=== PATIENT | male | born 1990 | race Caucasian/White ===

== ENCOUNTER 2017-11-08 14:34 | Emergency (ER) | payer OTHER ==
[~2017-11-08] VITALS: Ht 165.1 cm; Wt 101.2 kg
--- OUTSIDE RECORDS SUMMARY | ~2017-11-08 | XMS | Clinical Summary ---
Demographics + + + | Address | [address] | | | [place] [address] | + + + | Home Phone | | + + + | Preferred Language | Unknown | + + + | Marital Status | Single | + + + | Nondenominational Affiliation | Unknown | + + + | Race | White | + + + | Ethnic Group | Not or | + + + Author + + + | Organization | Unknown | + + + | Address | Unknown | + + + | Phone | Unavailable | + + + Care Team Providers + +------+ + | Care Fish Peddler Name | Role | Phone | + +------+ + PP | Unavailable | + +------+ + Source Comments TAYLOR is fully live on both [facility] and [facility] InPatient.[facility] Allergies Not on File Current Medications Not on file Active Problems Not on file Social History + +-------+ +--------+------+ | Tobacco Use | Types | Packs/Day | Years | Date | | | | | Used | | + +-------+ +--------+------+ | Never Assessed | | | | | + +-------+ +--------+------+ + + + | Sex Assigned at | Date Recorded | | | | + + + | Not on file | | + + + Plan of Treatment + + + + + | Health Maintenance | Due Date | Last Done | Comments | + + + + + | INFLUENZA VACCINE | | | | | (FLU SHOT) | 8 | | | + + + + + Results Not on filefrom Last 3 Months"
--- OUTSIDE RECORDS SUMMARY | ~2017-11-08 | XMS | Clinical Summary ---
Demographics + + + | Address | [address] | | | [place] [address] | + + + | Home Phone | | + + + | Preferred Language | Unknown | + + + | Marital Status | | + + + | Evangelical Affiliation | Unknown | + + + | Race | Unknown | + + + | Ethnic Group | Unknown | + + + Author + + + | Author | [facility] | | | and [place] | + + + | Organization | [facility] | | | and [place] | + + + | Address | Unknown | + + + | Phone | Unavailable | + + + Support + + + + + | Name | Relationship | Address | Phone | + + + + + | Polina Silverio | ECON | [address] | | | | | [place] | | | | | [address] | | + + + + + Care Team Providers + +------+ + | Care Bending Machine Operator Name | Role | Phone | + +------+ + | Faraz Francis MD | PP | | + +------+ + Allergies No Known Allergies Current Medications + + +--------+---------+------+------+-------+ | Prescription | Sig. | Disp. | Refills | Star | End | Statu | | | | | | t | Date | s | | | | | | Date | | | + + +--------+---------+------+------+-------+ | | Take 1-2 tablets by | | | | | Activ | | HYDROcodone-acetamin | mouth every 6 hours | | | | | e | | ophen (NORCO) 5-325 | as needed. | | | | | | | mg per tablet | | | | | | | + + +--------+---------+------+------+-------+ | senna (SENNA LAX) | Take 2 tablets by | 60 | 0 | 03/2 | | Activ | | 8.6 mg tablet | mouth nightly as | tablet | | 8/20 | | e | | | needed for | | | 17 | | | | | Constipation. | | | | | | + + +--------+---------+------+------+-------+ Active Problems Not on file Social History + +-------+ +--------+------+ | Tobacco Use | Types | Packs/Day | Years | Date | | | | | Used | | + +-------+ +--------+------+ | Never Smoker | | | | | + +-------+ +--------+------+ + + +---------+ + | Alcohol Use | Drinks/We | oz/Week | Comments | | | ek | | | + + +---------+ + | Yes | | | occassional | + + +---------+ + + + + | Sex Assigned at | Date Recorded | | | | + + + | Not on file | | + + + Last Filed Vital Signs + + + + | Vital Sign | Reading | Time Taken | + + + + | Blood Pressure | 124/71 | 10/09/2016 2328 PDT | + + + + | Pulse | 71 | 10/09/20162327 PDT | + + + + | Temperature | 35.9 C (96.7 F) | 10/09/20162140 PDT | + + + + | Respiratory Rate | 18 | 10/09/20162140 PDT | + + + + | Oxygen Saturation | 95% | 10/09/20162327 PDT | + + + + | Inhaled Oxygen | - | - | | Concentration | | | + + + + | Weight | 95.3 kg (210 lb) | 10/09/20162140 PDT | + + + + | Height | 167.6 cm (5' 6") | 10/09/20162140 PDT | + + + + | Body Mass Index | 33.89 | 10/09/20162140 PDT | + + + + Plan of Treatment + + + + + | Health Maintenance | Due Date | Last Done | Comments | + + + + + | Vaccine: | | | | | Dtap/Tdap/Td (1 - | 8 | | | | Tdap) | | | | + + + + + | Vaccine: Influenza | | | | | (Season Ended) | 8 | | | + + + + + Results Not on filefrom Last 3 Months Insurance + +--------+ +------+ +---------+ | Payer | Benefi | Subscriber | Type | Phone | Address | | | t Plan | ID | | | | | | / | | | | | | | Group | | | | | + +--------+ +------+ +---------+ | [employer] | PACIFI | xxxxxxxxxxx | PPO | [phone] | | | [employer] | | | [id number] | | | | [address] | | | | | | | [address] | | | | | | | E[employer] | | | | | | | PPO | | | | | + +--------+ +------+ +---------+ + +--------+ +--------+ + + | Guarantor Name | Accoun | Relation to | Date | Phone | Billing Address | | | t Type | Patient | of | | | | | | | | | | + +--------+ +--------+ + + | QUINN GRAY | Person | Self [birth year] | Home: | [id number] | | | [place] | | 1989 | [phone] | [place] [address] | | | [place] | | | [phone] | | + +--------+ +--------+ + +
--- OUTSIDE RECORDS SUMMARY | ~2017-11-08 | XMS | Clinical Summary ---
Demographics + + + | Address | [address] | | | [place] [address] | + + + | Home Phone | | + + + | Preferred Language | Unknown | + + + | Marital Status | Single | + + + | Mormon Affiliation | Unknown | + + + | Race | White | + + + | Ethnic Group | Not or | + + + Author + + + | Organization | Unknown | + + + | Address | Unknown | + + + | Phone | Unavailable | + + + Care Team Providers + +------+ + | Care Joiner Helper Name | Role | Phone | + +------+ + PP | Unavailable | + +------+ + Source Comments TAYLOR is fully live on both [facility] and [facility] InPatient.[facility] Allergies Not on File Current Medications Not [...]
--- OUTSIDE RECORDS SUMMARY | ~2017-11-08 | XMS | Clinical Summary ---
Demographics + + + | Address | [address] | | | [place] [address] | + + + | Home Phone | | + + + | Preferred Language | Unknown | + + + | Marital Status | | + + + | Moravian Affiliation | Unknown | + + + | Race | Unknown | + + + | Ethnic Group | Unknown | + + + Author + + + | Author | [facility] | | | and [place] | + + + | Organization | [facility] | | | and [place] | [...] [place] | | | | | [address] | | + + + + + Care Team Providers + +------+ + | Care Testing Consultant Name | Role | Phone | + [...] | Self | [birth year] | Home: | [address] | | | [place] | | 1989 | [phone] | [place] [address] | | | [place] | | | [phone] | | + +--------+ +--------+ + +
[~2017-11-08 14:34] MED LIST: ASPIRIN EC325 MG PO; VICODIN 5-3001 EACH PO
[2017-11-08] MEDS ORDERED: MULTI VITAMIN1 EACH PO (15:15)
[2017-11-08] MEDS ORDERED: NORCO 5-325 TA1 EACH PO (15:18)
[2017-11-08] MEDS ORDERED: BACLOFEN10 MG PO (15:18)
[2017-11-08] MEDS ORDERED: METHYLPREDNISOLO4 M1 PO (15:18)
== END 2017-11-08 15:35 | disposition home or self-care (01) ==
LOC: ED 14:34
DX: M54.32 Sciatica, left side (principal)
CPT/HCPCS: 99283

== ENCOUNTER 2020-12-21 12:25 | Emergency (ER) | payer OTHER, BC ==
[~2020-12-21] VITALS: Ht 165.1 cm; Wt 101.9 kg
[~2020-12-21 12:25] MED LIST changes: +BACLOFEN10 MG PO; +METHYLPREDNISOLO4 M1 PO; +MULTI VITAMIN1 EACH PO; +NORCO 5-325 TA1 EACH PO
== END 2020-12-21 16:11 | disposition home or self-care (01) ==
LOC: ED 12:25
DX: S29.011A Strain of muscle and tendon of front wall of thorax, initial encounter (principal); W22.8XXA Striking against or struck by other objects, initial encounter; Y99.0 Civilian activity done for income or pay
CPT/HCPCS: 71101; 99283-25

== ENCOUNTER 2022-10-11 12:22 | Emergency (ER) | payer OTHER ==
[~2022-10-11] VITALS: Ht 165.1 cm; Wt 100.6 kg
== END 2022-10-11 13:38 | disposition home or self-care (01) ==
LOC: ED 12:22
DX: S90.32XA Contusion of left foot, initial encounter (principal); W22.8XXA Striking against or struck by other objects, initial encounter
CPT/HCPCS: 73630; 99283-25; A9270

== ENCOUNTER 2025-05-25 18:18 | Emergency (ER) | payer OTHER ==
[~2025-05-25] VITALS: Ht 165.1 cm; Wt 100.2 kg
[~2025-05-25 18:18] MED LIST changes: +CLOBETASOL PROP15 G3 TP; +ONDANSETRON ODT8 MG PO
[2025-05-25 20:01] LABS: BASOPHILS 0.3 % (0.2-1.2); EOSINOPHILS 0.4 % (0.8-7.0); LYMPHOCYTES 10.4 % (21.8-53.1); MCH 30.0 PG (25.7-32.2); MCHC 35.1 g/dL (32.3-36.5); MCV 85.5 fL (79.0-92.2); MONOCYTES 5.3 % (5.3-12.2); NEUTROPHILS 83.2 % (34.0-67.9); RBC 5.50 M/uL (4.63-6.08)
[2025-05-25 20:17] LABS: ALT (SGPT) 60.0 U/L (14-59); AST (SGOT) 25.0 U/L (15-37); GLOMERULAR FILTRATION RATE,EST 99.0 mL/min (>60); PROTEIN, TOTAL 7.4 g/dL (6.4-8.2); UREA NITROGEN 18.0 mg/dL (7-18)
[2025-05-25] MEDS ORDERED: LACTATED RINGER'S 1,000 ML IV ONE (21:00)
[2025-05-25] MEDS ORDERED: FAMOTIDINE 20 MG/ 2 ML VIAL IV ONE (21:15)
[2025-05-25 22:32] LABS: BLOOD/HGB, URINE NEGATIVE (Negative); KETONE, URINE TRACE (Negative); LEUK ESTERASE, URINE NEGATIVE (negative); NITRITE, URINE NEGATIVE (negative)
[2025-05-26 00:27] VITALS: BP 139/82
== END 2025-05-26 00:27 | disposition home or self-care (01) ==
LOC: ED 18:18
PROVIDERS: Internal Medicine
DX: B34.9 Viral infection, unspecified (principal); R10.12 Left upper quadrant pain; R10.13 Epigastric pain
CPT/HCPCS: 36415; 71045; 74177; 80053; 81003; 83690; 85025; 96374; 96375; 99284-25; J2405; J7121; Q9967